=== PATIENT | female | born 1965 | race Caucasian/White ===

== ENCOUNTER 2020-06-02 13:06 | Emergency (ER) | payer MEDICARE, SELFPAY ==
[2020-06-02 13:47] VITALS: BP 92/65; PULSE 75; RESP 18; TEMP 36.5; O2SAT 97; BMI 24.5
--- NOTE | 2020-06-02 14:03 | ED_ITS ---
HPI - URI/Sore Throat General Chief Complaint: Upper Respiratory Symptoms Stated Complaint: FEVER,COUGH, DIARRHEA Time Seen by Provider: 06/02/20 14:02 Source: patient Mode of arrival: ambulatory Limitations: no limitations History of Present Illness MD elicited complaint: fever, cough and other (diarrhea) Pertinent past history: immunosuppression (has APS on plaquenil) Onset (ago): day(s) (1) Consistency: constant Severity: moderate Description of mucous: clear Able to tolerate fluids by mouth: Yes Exacerbating factors: nothing Relieving factors: nothing Associated symptoms: fever, chills, myalgias and diarrhea Related Data Previous Rx's Medication Instructions Recorded azithromycin See Rx Instructions .ROUTE 06/02/20 .COMPLEX #6 tab hydrocodone-homatropine 5 ml PO Q6H PRN #0.5 bottle 06/02/20 Allergies Allergy/AdvReac Type Severity Reaction Status Date / Time clindamycin [CLINDAMYCIN] Allergy Unknown RASH Verified 06/02/20 13:59 Sulfa (Sulfonamide Allergy Unknown RASH Verified 06/02/20 13:59 Antibiotics) [SULFA (SULFONAMIDE ANTIBIOTICS)] Clindamycin HCl Allergy Unknown rash Uncoded 05/01/20 00:00 Sulfonamide Allergy Unknown hives Uncoded 05/01/20 00:00 Review of Systems Review of Systems: Constitutional : positive Fever, positive Chills ENT/Mouth : No sore throat, No Rhinorrhea, No Swallowing Difficulty Eyes: No Eye Pain, No Swelling, No Redness Cardiovascular : No Chest Pain, no SOB, No Orthopnea, positive Edema Respiratory : positive Cough, No Sputum, No Wheezing, no dyspnea Gastrointestinal : No Nausea, No Vomiting, positive Diarrhea, No abdominal Pain Genitourinary : No Dysuria, No Urinary Frequency, No Hematuria Musculoskeletal : No joint pain, No Myalgias Skin : No Skin Lesions, No rash Neuro : No Weakness, No Numbness, No Dizziness, No Headache Psych : No Anxiety/Panic, No Depression Heme/Lymph: No Bruising, No Lymphadenopathy Endocrine : No Polyuria, No Polydipsia All other systems reviewed and are negative [facility] Past Medical History Attestation statement: The following information was validated with the patient. Medical History Adrenal mass APS (antiphospholipid syndrome) Deep vein thrombosis (DVT) Fibromyalgia Hyperlipemia Neuralgia Pulmonary embolism Surgical History H/O: hysterectomy Hx of cholecystectomy S/P ablation of atrial fibrillation Social History Social History (Updated 06/02/20 @ 14:24 by Jane Mercedes DO) Smoking Status: Former smoker Smoked in Last 30 Days: No Use of substances other than those prescribed or required for medical reasons: No Advance Directives: No Advance Directives Information Provided: No Physical Exam Vital Signs and I&O and Narrative: Vital Signs and I&O: Vital Signs Temp 97.7 F 06/02/20 13:47 Pulse 75 06/02/20 13:47 Resp 18 06/02/20 13:47 BP 125/62 06/02/20 14:16 Pulse Ox 97 06/02/20 13:47 Intake & Output 06/01/20 06/02/20 06/02/20 18:59 06:59 18:59 Weight 60.781 kg Body Mass Index 24.5 Appearance: Alert. Oriented X3. No acute distress. Eyes: Pupils equal, round and reactive to light. ENT: Pharynx normal. Neck: Normal inspection. Neck supple. CVS: Normal heart rate and rhythm. Pulses normal. Respiratory: No respiratory distress. + rhonchi anteriorly, decreased breath sounds bilterally mildly Abdomen: Soft and nontender. Skin: Skin warm and dry. Normal skin color. Normal skin turgor. Extremities: No lower extremity edema. No lower extremity edema. Neuro: Oriented X 3. No motor deficit. No sensory deficit. Course Reevaluation(s) Reevaluation #1: feels much btter, stable for DC, BP stable Reevaluation #2: feels better, O2 sat normal BP 121/65 MDM - URI/Sore Throat MDM Narrative Medical decision making narrative: patient with viral like syndrome fevers/chills/cough and diarrhea given her immunosuppression will need labs, cultures, lactic acid,IVF, CXR, COVID swab, INR given her coumadin use for DVT Lab Data Result diagrams: 06/02/20 14:52 06/02/20 14:52 Labs: Lab Results 06/02/20 06/02/20 06/02/20 Range/Units 14:51 14:52 14:52 WBC 4.5 L (4.8-10.8) X10*3/uL RBC 4.74 (4.20-5.50) X10*6/uL Hgb 14.5 (12.0-16.0) g/dl Hct 43.8 (37-47) % MCV 92.4 (80-98) fL MCH 30.6 (27.0-33.0) pg MCHC 33.1 (31.0-35.0) g/dl RDW 12.7 (11.0-16.0) % Plt Count 158 L (160-400) X10*3/uL MPV 10.5 (9.4-12.3) fL Immature Gran % (Auto) 0.2 (0.0-0.4) % Neut % (Auto) 58.9 (45-73) % Lymph % (Auto) 23.9 (20-40) % Gilliam % (Auto) 15.7 H (2-11) % Eos % (Auto) 1.1 (0-4) % Baso % (Auto) 0.2 (0-2) % Neut # (Auto) 2.6 (2.0-8.3) X10*3/uL Lymph # (Auto) 1.1 L (1.2-4.9) X10*3/uL Gilliam # (Auto) 0.7 (0.1-1.2) X10*3/uL Eos # (Auto) 0.1 (0.0-0.4) X10*3/uL Baso # (Auto) 0.0 (0.0-0.2) X10*3/uL Abs Immat Gran (auto) 0.01 (0.00-0.03) X10*3/uL Absolute Nucleated RBC 0.000 (0.0-0.012) X10*3/uL Nucleated RBC % (auto) 0.0 (0.0-0.2) /100WBC PT 28.2 H (10.8-13.0) SEC INR 2.4 H (0.9-1.1) Sodium (135-145) mmol/L Potassium (3.3-5.1) mmol/l Chloride (96-108) mmol/L Carbon Dioxide (22-29) mmol/L Anion Gap (12-20) BUN (9-16) mg/dL Creatinine (0.5-1.4) mg/dL Estim Creat Clear Calc Estimated GFR Random Glucose (60-115) mg/dL Lactic Acid 0.9 (0.5-2.0) mmol/L Calcium (8.4-10.2) mg/dL Magnesium (1.6-2.6) mg/dL 06/02/20 Range/Units 14:52 WBC (4.8-10.8) X10*3/uL RBC (4.20-5.50) X10*6/uL Hgb (12.0-16.0) g/dl Hct (37-47) % MCV (80-98) fL MCH (27.0-33.0) pg MCHC (31.0-35.0) g/dl RDW (11.0-16.0) % Plt Count (160-400) X10*3/uL MPV (9.4-12.3) fL Immature Gran % (Auto) (0.0-0.4) % Neut % (Auto) (45-73) % Lymph % (Auto) (20-40) % Gilliam % (Auto) (2-11) % Eos % (Auto) (0-4) % Baso % (Auto) (0-2) % Neut # (Auto) (2.0-8.3) X10*3/uL Lymph # (Auto) (1.2-4.9) X10*3/uL Gilliam # (Auto) (0.1-1.2) X10*3/uL Eos # (Auto) (0.0-0.4) X10*3/uL Baso # (Auto) (0.0-0.2) X10*3/uL Abs Immat Gran (auto) (0.00-0.03) X10*3/uL Absolute Nucleated RBC (0.0-0.012) X10*3/uL Nucleated RBC % (auto) (0.0-0.2) /100WBC PT (10.8-13.0) SEC INR (0.9-1.1) Sodium 139 (135-145) mmol/L Potassium 3.8 (3.3-5.1) mmol/l Chloride 107 (96-108) mmol/L Carbon Dioxide 24 (22-29) mmol/L Anion Gap 12 (12-20) BUN 9 (9-16) mg/dL Creatinine 0.68 (0.5-1.4) mg/dL Estim Creat Clear Calc 79.2 Estimated GFR > 60 Random Glucose 81 (60-115) mg/dL Lactic Acid (0.5-2.0) mmol/L Calcium 8.9 (8.4-10.2) mg/dL Magnesium 2.1 (1.6-2.6) mg/dL Discharge Plan Discharge Clinical Impression: Upper respiratory infection Patient Disposition: Home, Self-Care Instructions: COVID-19 (Coronavirus Disease 2019) (ED) Additional Instructions: you were tested for COVID we will call you with results in 2 to 4 days Prescriptions: New azithromycin 250 mg tablet See Rx Instructions .ROUTE .COMPLEX Qty: 6 RF: 0 hydrocodone-homatropine 5-1.5 mg/5 mL syrup 5 ml PO Q6H PRN (Reason: cough) Qty: 0.5 RF: 0 Referrals: Rachid Miles PA-C [Primary Care Provider] - 06/05/20
--- NOTE | 2020-06-02 14:13 | XR_ITS ---
EXAMINATION: XR CHEST 2 VIEWS CLINICAL INFORMATION: Cough. COMPARISON: Chest radiograph dated 03/12/2020. TECHNIQUE: Frontal and lateral views of the chest were obtained. The patient is somewhat rotated. FINDINGS: The heart, great vessels, pulmonary vasculature and mediastinum are normal. The lungs show no focal infiltrate, effusion or pneumothorax. There is no acute osseous abnormality. IMPRESSION: No active cardiopulmonary disease.
[2020-06-02 14:16] VITALS: BP 125/62
[2020-06-02] MEDS: Albuterol/Iprat 2.5/0.5MG 3 ML AMPUL.NEB INHALE (14:23)
[2020-06-02] MEDS: 0.9 % Sodium Chloride 1,000 ML 999 ML IVCONT (14:56)
[2020-06-02] MEDS: HYDROcodone/Homat 5/1.5/5 ML 5 ML SYRUP PO (14:56)
[2020-06-02 15:04] LABS: MANUAL DIFF FLAG NO
[2020-06-02 15:06] LABS: Basophils Percent Auto 0.2 % (0-2); Eosinophils Absolute Auto 0.1 X10*3/uL (0.0-0.4); Eosinophils Percent Auto 1.1 % (0-4); Hematocrit 43.8 % (37-47); Hemoglobin 14.5 g/dl (12.0-16.0); Imm Gran Abs Auto 0.01 X10*3/uL (0.00-0.03); Imm Gran Pct Auto 0.2 % (0.0-0.4); Lymphocytes Absolute Auto 1.1 X10*3/uL (1.2-4.9); Lymphocytes Percent Auto 23.9 % (20-40); Mean Corpuscular HGB Conc 33.1 g/dl (31.0-35.0); Mean Corpuscular Hemoglobin 30.6 pg (27.0-33.0); Mean Corpuscular Volume 92.4 fL (80-98); Mean Platelet Volume 10.5 fL (9.4-12.3); Monocytes Absolute Auto 0.7 X10*3/uL (0.1-1.2); Monocytes Percent Auto 15.7 % (2-11); Neutrophils Absolute Auto 2.6 X10*3/uL (2.0-8.3); Neutrophils Percent Auto 58.9 % (45-73); Platelet Count 158 X10*3/uL (160-400); Red Blood Count 4.74 X10*6/uL (4.20-5.50); Red Cell Distribution Width 12.7 % (11.0-16.0); White Blood Count 4.5 X10*3/uL (4.8-10.8)
[2020-06-02 15:10] LABS: INTERNATIONAL NORM RATIO 2.4 (0.9-1.1); Prothrombin Time 28.2 SEC (10.8-13.0)
[2020-06-02 15:30] LABS: Lactic Acid 0.9 mmol/L (0.5-2.0)
[2020-06-02 15:34] LABS: Anion Gap 12 (12-20); Blood Urea Nitrogen 9 mg/dL (9-16); Calcium 8.9 mg/dL (8.4-10.2); Carbon Dioxide 24 mmol/L (22-29); Chloride 107 mmol/L (96-108); Creatinine Clr Calc Pharmacy 79.2; Estimated Glomerular Filt Rate > 60; Glucose Random 81 mg/dL (60-115); Magnesium 2.1 mg/dL (1.6-2.6); Potassium 3.8 mmol/l (3.3-5.1); Sodium 139 mmol/L (135-145)
== END 2020-06-02 16:31 | disposition home or self-care (01) ==
PROVIDERS: Emergency Provider Emergency Medicine; PCP Physician Assistant
DX: J06.9 Acute upper respiratory infection, unspecified (principal); R50.9 Fever, unspecified; R05 Cough; Z20.828 Contact with and (suspected) exposure to other viral communicable diseases
CPT/HCPCS: 36415; 71045; 80048; 83605; 83735; 85025; 85610; 87040; 87635; 96360; 99284

== ENCOUNTER → 2020-07-04 11:24 | Outpatient (BNVA) | payer MEDICARE, SELFPAY | PROVIDERS: PCP Physician Assistant; Visit Provider Family Medicine Adult Medicine | DX: M79.7 Fibromyalgia (principal); R20.2 Paresthesia of skin; Z88.1 Allergy status to other antibiotic agents; Z88.2 Allergy status to sulfonamides; Z79.02 Long term (current) use of antithrombotics/antiplatelets; Z79.899 Other long term (current) drug therapy | CPT/HCPCS: 99202 ==

== ENCOUNTER 2020-10-31 14:27 | Outpatient (REF) | payer MEDICARE, SELFPAY ==
[2020-10-31 15:33] LABS: MANUAL DIFF FLAG NO
[2020-10-31 15:37] LABS: White Blood Count 6.8 X10*3/uL (4.8-10.8)
[2020-10-31 15:38] LABS: Basophils Percent Auto 0.3 % (0-2); Eosinophils Absolute Auto 0.1 X10*3/uL (0.0-0.4); Eosinophils Percent Auto 0.9 % (0-4); Hematocrit 45.4 % (37-47); Hemoglobin 15.1 g/dl (12.0-16.0); Imm Gran Abs Auto 0.02 X10*3/uL (0.00-0.03); Imm Gran Pct Auto 0.3 % (0.0-0.4); Lymphocytes Absolute Auto 2.5 X10*3/uL (1.2-4.9); Lymphocytes Percent Auto 36.5 % (20-40); Mean Corpuscular HGB Conc 33.3 g/dl (31.0-35.0); Mean Corpuscular Hemoglobin 30.6 pg (27.0-33.0); Mean Corpuscular Volume 91.9 fL (80-98); Mean Platelet Volume 10.9 fL (9.4-12.3); Monocytes Absolute Auto 0.8 X10*3/uL (0.1-1.2); Monocytes Percent Auto 11.6 % (2-11); Neutrophils Absolute Auto 3.4 X10*3/uL (2.0-8.3); Neutrophils Percent Auto 50.4 % (45-73); Platelet Count 216 X10*3/uL (160-400); Red Blood Count 4.94 X10*6/uL (4.20-5.50); Red Cell Distribution Width 12.4 % (11.0-16.0)
[2020-10-31 15:48] LABS: Glucose Urine UA NEG (NEG); Leukocyte Esterase Urine NEG (NEG); Nitrite Urine NEG (NEG); Specific Gravity - Urine >= 1.030 (1.005-1.025); Urine Blood TRACE (NEG); Urine Ketones NEG (NEG); Urine Protein NEG (NEG-TRACE)
[2020-10-31 15:49] LABS: Appearance Urine CLEAR; Color Urine YELLOW
[2020-10-31 15:51] LABS: Bacteria Urine 1+ /LPF; Mucus Urine 1+ /LPF; Squamous Epithelial Cell Urine 1+ /LPF
[2020-10-31 16:03] LABS: Alanine Aminotransferase 54 U/L (0-31); Albumin Level 4.4 g/dL (3.5-5.0); Alkaline Phosphatase 112 U/L (39-117); Anion Gap 13 (12-20); Aspartate Amino Transferase 52 U/L (5-31); Bilirubin Total 0.6 mg/dL (0.0-1.0); Blood Urea Nitrogen 7 mg/dL (9-16); Calcium 8.7 mg/dL (8.4-10.2); Carbon Dioxide 28 mmol/L (22-29); Chloride 105 mmol/L (96-108); Cholesterol 155 mg/dL; Estimated Glomerular Filt Rate > 60; Glucose Random 83 mg/dL (60-115); HDL Cholesterol 40 mg/dL; LDL Cholesterol Calculated 66 mg/dl; Potassium 4.5 mmol/L (3.3-5.1); Sodium 141 mmol/L (135-145); Total Protein 6.9 g/dL (6.5-8.0); Triglycerides 247 mg/dL
== END 2020-10-31 14:28 | disposition home or self-care (01) ==
LOC: HO.LAB 14:27
PROVIDERS: PCP Physician Assistant; Visit Provider Nurse Practitioner Family
DX: N39.0 Urinary tract infection, site not specified (principal); K59.00 Constipation, unspecified
CPT/HCPCS: 36415; 80053; 80061; 81001; 85025

== ENCOUNTER 2021-01-16 16:27 | Outpatient (REF) | payer MEDICARE, SELFPAY ==
--- NOTE | ~2021-01-16 | XR_ITS ---
EXAMINATION: XR CHEST CLINICAL INFORMATION: Shortness of breath COMPARISON: None TECHNIQUE: 2 views of the chest were obtained. FINDINGS: No significant abnormality is noted involving the heart, lungs, mediastinum, bony thorax or soft tissues. XR/XR chest 2V IMPRESSION: Unremarkable chest exam.
[2021-01-17 12:36] LABS: Influenza A PCR NEGATIVE (Negative); Influenza B PCR NEGATIVE (Negative); Resp Syncy Virus RNA Qual PCR NEGATIVE (Negative); SARS COV2 PCR INHOUSE NEGATIVE (Negative)
== END 2021-01-16 16:28 | disposition home or self-care (01) ==
LOC: HO.LAB 16:27
PROVIDERS: Visit Provider Nurse Practitioner Family
DX: Z20.822 Contact with and (suspected) exposure to COVID-19 (principal); R06.02 Shortness of breath
CPT/HCPCS: 0241U; 36415; 71046

== ENCOUNTER 2021-01-16 16:30 | Outpatient (REF) | payer MEDICARE, SELFPAY | END 2021-01-16 16:31 | disposition home or self-care (01) | LOC: HO.HMGCX 16:30 | PROVIDERS: PCP Physician Assistant; Visit Provider Nurse Practitioner Family | DX: Z13.89 Encounter for screening for other disorder (principal) ==

== ENCOUNTER 2021-04-13 15:32 | Outpatient (REF) | payer OTHER, SELFPAY ==
[2021-04-13 16:43] LABS: Urine Cytology See Pathology rpt
== END 2021-04-13 15:33 | disposition home or self-care (01) ==
LOC: HO.LNP 15:32
PROVIDERS: PCP Physician Assistant
DX: R10.2 Pelvic and perineal pain (principal); R30.0 Dysuria; R39.12 Poor urinary stream; N39.0 Urinary tract infection, site not specified; E78.00 Pure hypercholesterolemia, unspecified; F17.210 Nicotine dependence, cigarettes, uncomplicated; Z88.1 Allergy status to other antibiotic agents; Z88.2 Allergy status to sulfonamides
CPT/HCPCS: 51798; 88112; 99202

== ENCOUNTER → 2021-05-04 11:33 | Outpatient (BNVA) | payer OTHER, SELFPAY | PROVIDERS: PCP Physician Assistant | CPT/HCPCS: Q3014 ==

== ENCOUNTER 2021-05-11 16:44 | Emergency (ER) | payer OTHER, SELFPAY ==
[2021-05-11 16:48] VITALS: BP 143/70; PULSE 124; RESP 16; TEMP 36.5; O2SAT 100; BMI 26.3
--- NOTE | 2021-05-11 16:57 | PC.NURSE ---
Patient reports I am not waiting, bring me outside I am going to another hospital . This RN pulled her outside on wheelchair. Patient jumped out of chair and started running through hospital parking lot, swearing at this RN.
== END 2021-05-11 17:18 | disposition left against medical advice (07) ==
LOC: HO.ED 17:17
PROVIDERS: Emergency Provider Emergency Medicine
DX: R06.02 Shortness of breath (principal); F41.1 Generalized anxiety disorder; F43.0 Acute stress reaction
CPT/HCPCS: 99281; 99282

== ENCOUNTER 2021-05-18 14:03 | Outpatient (REF) | payer OTHER, SELFPAY ==
[2021-05-18 14:49] LABS: Blood Urea Nitrogen 5 mg/dL (9-16); Estimated Glomerular Filt Rate > 60
== END 2021-05-18 14:04 | disposition home or self-care (01) ==
LOC: HO.LAB 14:03
PROVIDERS: PCP Physician Assistant; Visit Provider Physician Assistant
DX: D68.61 Antiphospholipid syndrome (principal)
CPT/HCPCS: 36415; 82565; 84520

== ENCOUNTER 2021-06-21 | Outpatient (REF) | payer OTHER, SELFPAY ==
[2021-06-22 12:59] LABS: Influenza A PCR NEGATIVE (Negative); Influenza B PCR NEGATIVE (Negative); Resp Syncy Virus RNA Qual PCR NEGATIVE (Negative); SARS COV2 PCR INHOUSE NEGATIVE (Negative)
== END 2021-06-21 00:01 | disposition home or self-care (01) ==
LOC: HO.LNP
PROVIDERS: Visit Provider Physician Assistant Medical
DX: Z20.822 Contact with and (suspected) exposure to COVID-19 (principal); J06.9 Acute upper respiratory infection, unspecified
CPT/HCPCS: 0241U

== ENCOUNTER 2021-06-27 13:05 | Outpatient (REF) | payer OTHER, SELFPAY ==
--- NOTE | ~2021-06-27 | US_ITS ---
EXAMINATION: US ABDOMEN LIMITED CLINICAL INFORMATION: Localized swelling, mass and lump, trunk. COMPARISON: Previous CT of the abdomen and pelvis August 2019 TECHNIQUE: Real-time imaging of the region of concern to the right of the umbilicus using a linear transducer as indicated by the patient. FINDINGS: No hernia is appreciated by ultrasound. No solid or cystic soft tissue mass is seen. US/US abdomen limited IMPRESSION: No hernia appreciated by ultrasound
== END 2021-06-27 13:06 | disposition home or self-care (01) ==
LOC: HO.HMGCX 13:05
PROVIDERS: PCP Physician Assistant; Visit Provider Physician Assistant
DX: R22.2 Localized swelling, mass and lump, trunk (principal)
CPT/HCPCS: 76705

== ENCOUNTER 2021-09-06 14:55 | Outpatient (RCR) | payer OTHER, SELFPAY | END 2021-10-30 09:27 | disposition home or self-care (01) | LOC: HO.PT 14:55 | PROVIDERS: PCP Physician Assistant; Visit Provider Nurse Practitioner Family | DX: S39.011D Strain of muscle, fascia and tendon of abdomen, subsequent encounter (principal) | CPT/HCPCS: 97110; 97162; 97530 ==

== ENCOUNTER 2021-09-17 13:37 | Outpatient (REF) | payer OTHER, SELFPAY ==
[2021-09-17 14:22] LABS: Hematocrit 44.9 % (37.0-47.0); Hemoglobin 14.6 g/dl (12.0-16.0); Mean Corpuscular HGB Conc 32.5 g/dl (31.0-35.0); Mean Corpuscular Hemoglobin 30.1 pg (27.0-33.0); Mean Corpuscular Volume 92.6 fL (80.0-98.0); Mean Platelet Volume 10.1 fL (9.4-12.3); Platelet Count 256 X10*3/uL (160-400); Red Blood Count 4.85 X10*6/uL (4.20-5.50); Red Cell Distribution Width 13.6 % (11.0-16.0); White Blood Count 9.6 X10*3/uL (4.8-10.8)
[2021-09-17 14:30] LABS: Estimated Average Glucose 123 mg/dL; Hemoglobin A1c % 5.9 %
[2021-09-17 15:01] LABS: Alanine Aminotransferase 93 U/L (0-31); Albumin Level 4.1 g/dL (3.5-5.0); Alkaline Phosphatase 234 U/L (39-117); Anion Gap 13 (12-20); Aspartate Amino Transferase 76 U/L (5-31); Bilirubin Total 0.5 mg/dL (0.0-1.0); Blood Urea Nitrogen 5 mg/dL (9-16); Carbon Dioxide 29 mmol/L (22-29); Chloride 102 mmol/L (96-108); Cholesterol 169 mg/dL; Estimated Glomerular Filt Rate > 60; Glucose Fasting 84 mg/dL (60-99); HDL Cholesterol 49 mg/dL; LDL Cholesterol Calculated 70 mg/dl; Potassium 4.4 mmol/L (3.3-5.1); Sodium 140 mmol/L (135-145); Triglycerides 252 mg/dL
[2021-09-17 15:23] LABS: TSH reflex Free T4 0.98 uIU/mL (0.32-4.0)
== END 2021-09-17 13:38 | disposition home or self-care (01) ==
LOC: HO.LAB 13:37
PROVIDERS: PCP Physician Assistant; Visit Provider Physician Assistant
DX: D68.61 Antiphospholipid syndrome (principal); I10 Essential (primary) hypertension
CPT/HCPCS: 36415; 80053; 80061; 83036; 84443; 85027

== ENCOUNTER 2021-10-16 15:59 | Outpatient (REF) | payer OTHER, SELFPAY ==
--- NOTE | ~2021-10-16 | MM_ITS ---
EXAMINATION: MM SCREENING DIGITAL BREAST TOMOSYNTHESIS, BILATERAL CLINICAL INFORMATION: Screening. Asymptomatic. The lifetime risk of breast cancer based on the Tyrer-Cuzick Model is 5%. COMPARISON: Mammography: 04/06/2020, 03/25/2019, 01/22/2011 TECHNIQUE: Digital breast tomosynthesis is performed in both the craniocaudal and mediolateral oblique views along with computer-aided detection (CAD). Synthesized 2D images are generated from the tomosynthesis. FINDINGS: There are scattered areas of fibroglandular density (ACR BI-RADS breast composition Category b). There are no significant masses, abnormal calcifications, or other abnormalities. Biopsy clip marker again noted posterior 3:00 left breast. There are scattered bilateral benign round and coarse calcifications again seen. The axilla and skin contours are unremarkable. No significant changes. MM/MM tomosynthesis screening BI IMPRESSION: No mammographic evidence of malignancy. ASSESSMENT: BI-RADS 2: Benign RECOMMENDATION: Routine annual mammography screening. This patient's information was entered into a reminder system with a target due date for their next mammogram.
== END 2021-10-16 16:00 | disposition home or self-care (01) ==
LOC: HO.MAMMO 15:59
PROVIDERS: PCP Physician Assistant; Visit Provider Physician Assistant
DX: Z12.31 Encounter for screening mammogram for malignant neoplasm of breast (principal)
CPT/HCPCS: 77063; 77067

== ENCOUNTER 2021-10-30 13:05 | Outpatient (REF) | payer OTHER, SELFPAY ==
--- NOTE | ~2021-10-30 | US_ITS ---
EXAMINATION: US ABDOMEN COMPLETE CLINICAL INFORMATION: Elevated liver enzymes. Abdominal bloating. COMPARISON: US abdomen limited 06/27/2021. CT abdomen and pelvis 08/27/2019. TECHNIQUE: Real-time imaging of the abdominal viscera. FINDINGS: PANCREAS: Normal. ABDOMINAL AORTA: The proximal, mid, and distal segments are normal in caliber. INFERIOR VENA CAVA: Visualized portions are normal. LIVER: The liver is normal in size. The liver contour is normal. There is increased liver echogenicity. No focal hepatic lesion. There is no intrahepatic biliary duct dilatation seen. GALLBLADDER: Surgically absent. COMMON BILE DUCT: Normal in caliber measuring 1.2 cm in diameter. RIGHT KIDNEY: Normal. No hydronephrosis. No renal calculi or focal parenchymal lesions. The kidney measures 11.1 cm in maximum dimension. LEFT KIDNEY: Normal. No hydronephrosis. No renal calculi or focal parenchymal lesions. The kidney measures 11.3 cm in maximum dimension. SPLEEN: Normal. The spleen measures 10.4 cm in maximum dimension. FREE FLUID: None. US/US abdomen complete IMPRESSION: Mild hepatic steatosis without focal lesion.
== END 2021-10-30 13:06 | disposition home or self-care (01) ==
LOC: HO.US 13:05
PROVIDERS: PCP Physician Assistant; Visit Provider Physician Assistant
DX: R74.01 Elevation of levels of liver transaminase levels (principal)
CPT/HCPCS: 76700

== ENCOUNTER 2021-11-13 13:11 | Outpatient (REF) | payer OTHER, SELFPAY ==
--- NOTE | ~2021-11-13 | XR_ITS ---
EXAMINATION: XR SHOULDER, LEFT CLINICAL INFORMATION: Pain COMPARISON: None TECHNIQUE: AP external rotation, Grashey, scapular Y, and axillary views of the left shoulder. FINDINGS: Bone alignment is normal. No fracture or dislocation is seen. The glenohumeral joint is normal. There is mild arthritis at the acromioclavicular joint. Soft tissues are unremarkable. XR/XR shoulder LT min 2V IMPRESSION: Mild arthritis at the acromioclavicular joint.
[2021-11-13 13:42] LABS: Hematocrit 46.3 % (37.0-47.0); Hemoglobin 15.2 g/dl (12.0-16.0); Mean Corpuscular HGB Conc 32.8 g/dl (31.0-35.0); Mean Corpuscular Hemoglobin 29.9 pg (27.0-33.0); Mean Corpuscular Volume 91.1 fL (80.0-98.0); Mean Platelet Volume 10.3 fL (9.4-12.3); Platelet Count 224 X10*3/uL (160-400); Red Blood Count 5.08 X10*6/uL (4.20-5.50); Red Cell Distribution Width 13.4 % (11.0-16.0); White Blood Count 10.1 X10*3/uL (4.8-10.8)
[2021-11-13 13:56] LABS: Prothrombin Time 35.3 SEC (9.9-13.0)
[2021-11-13 14:15] LABS: Alanine Aminotransferase 121 U/L (0-31); Albumin Level 4.4 g/dL (3.5-5.0); Alkaline Phosphatase 132 U/L (39-117); Aspartate Amino Transferase 73 U/L (5-31); Bilirubin Direct 0.2 mg/dL (0.0-0.5); Bilirubin Total 0.3 mg/dL (0.0-1.0); C Reactive Protein 1.29 mg/dL (< or = 0.50); Cholesterol 186 mg/dL; HDL Cholesterol 51 mg/dL; LDL Cholesterol Calculated 88 mg/dl; Total Protein 7.1 g/dL (6.5-8.0); Triglycerides 239 mg/dL
[2021-11-13 14:27] LABS: Erythrocyte Sedimentation Rate 7 MM/HR (0-20)
[2021-11-13 14:29] LABS: TSH reflex Free T4 0.83 uIU/mL (0.32-4.0)
[2021-11-18 18:42] LABS: Cortisol, Free 0.12 mcg/dL
== END 2021-11-13 13:12 | disposition home or self-care (01) ==
LOC: HO.LAB 13:11
PROVIDERS: PCP Physician Assistant; Visit Provider Physician Assistant
DX: E78.00 Pure hypercholesterolemia, unspecified (principal); E27.8 Other specified disorders of adrenal gland; D68.61 Antiphospholipid syndrome; M25.512 Pain in left shoulder
CPT/HCPCS: 36415; 73030; 80061; 80076; 82530; 84443; 85027; 85610; 85652; 86140

== ENCOUNTER → 2021-11-29 13:47 | Outpatient (BNVA) | payer OTHER, SELFPAY | PROVIDERS: PCP Physician Assistant; Visit Provider Nurse Practitioner Family | DX: M79.2 Neuralgia and neuritis, unspecified (principal); M79.7 Fibromyalgia; D68.61 Antiphospholipid syndrome; M47.817 Spondylosis without myelopathy or radiculopathy, lumbosacral region; M25.512 Pain in left shoulder; M46.1 Sacroiliitis, not elsewhere classified | CPT/HCPCS: 99212 ==

== ENCOUNTER → 2021-12-12 12:58 | Outpatient (BNVA) | payer OTHER, SELFPAY | PROVIDERS: PCP Physician Assistant; Visit Provider Internal Medicine Endocrinology, Diabetes & Metabolism | DX: E89.6 Postprocedural adrenocortical (-medullary) hypofunction (principal) | CPT/HCPCS: 99202 ==

== ENCOUNTER 2021-12-26 12:50 | Outpatient (REF) | payer OTHER, SELFPAY ==
--- NOTE | ~2021-12-26 | XR_ITS ---
EXAMINATION: XR CHEST CLINICAL INFORMATION: Preop COMPARISON: 01/16/2021 TECHNIQUE: 2 views of the chest were obtained. FINDINGS: No significant abnormality is noted involving the heart, lungs, mediastinum, bony thorax or soft tissues. XR/XR chest 2V IMPRESSION: Unremarkable examination.
--- NOTE | 2021-12-26 13:38 | ECG_ITS ---
Test Reason : Z01.818 PREOP Blood Pressure : / mmHG Vent. Rate : 099 BPM Atrial Rate : 099 BPM P-R Int : 168 ms QRS Dur : 088 ms QT Int : 346 ms P-R-T Axes : 059 084 046 degrees QTc Int : 444 ms Normal sinus rhythm Normal ECG When compared with ECG of 12-MAR-2020 15:48, Vent. rate has increased BY 45 BPM QT has lengthened Referred By: Rcahid Miles Electronically Signed By:SAMIR NINA
[2021-12-26 13:56] LABS: INTERNATIONAL NORM RATIO 2.8 (0.9-1.1); Prothrombin Time 32.9 SEC (9.9-13.0)
[2021-12-26 13:58] LABS: Partial Thromboplastin Time 49.2 SEC (24.1-38.0)
[2021-12-26 14:26] LABS: HCG Quantitative < 2 mIU/mL
[2021-12-27 06:04] LABS: HIV AB/AG Nonreactive (Nonreactive)
== END 2021-12-26 12:51 | disposition home or self-care (01) ==
LOC: HO.XRAY 12:50
PROVIDERS: PCP Physician Assistant; Visit Provider Physician Assistant
DX: Z01.818 Encounter for other preprocedural examination (principal); Z11.4 Encounter for screening for human immunodeficiency virus [HIV]; Z11.3 Encounter for screening for infections with a predominantly sexual mode of transmission
CPT/HCPCS: 36415; 71046; 84702; 85610; 85730; 87389; 93005

== ENCOUNTER → 2021-12-27 14:32 | Outpatient (BNVA) | payer OTHER, SELFPAY | PROVIDERS: PCP Physician Assistant; Visit Provider Nurse Practitioner Family | DX: M47.817 Spondylosis without myelopathy or radiculopathy, lumbosacral region (principal); M79.2 Neuralgia and neuritis, unspecified; M79.7 Fibromyalgia | CPT/HCPCS: 99212 ==

== ENCOUNTER 2022-04-09 14:09 | Outpatient (REF) | payer OTHER, SELFPAY ==
--- NOTE | ~2022-04-09 | XR_ITS ---
EXAMINATION: XR SHOULDER, RIGHT CLINICAL INFORMATION: Right shoulder pain COMPARISON: Chest radiographs 12/26/2021 TECHNIQUE: Right shoulder is imaged in 4 views. FINDINGS: There is airspace consolidation right upper lobe greatest adjacent to the minor fissure with mild volume loss. No visible effusion. No mediastinal shift. Finding is new from chest radiographs 12/26/2021. There is no bony abnormality. No shoulder fracture, dislocation, or arthropathy. The acromioclavicular alignment is normal. Normal bony mineralization. No visible rotator cuff calcifications. PSA to call report. XR/XR shoulder RT min 2V IMPRESSION: -Right upper lobe airspace consolidation abutting minor fissure with some mild volume loss. Recommend further evaluation with formal two-view chest x-ray and correlation with clinical findings and impression. -Right shoulder unremarkable. No bony abnormality. No visible rotator cuff calcifications.
[2022-04-09 14:54] LABS: Hematocrit 38.7 % (37.0-47.0); Hemoglobin 13.1 g/dl (12.0-16.0); Mean Corpuscular HGB Conc 33.9 g/dl (31.0-35.0); Mean Corpuscular Volume 91.7 fL (80.0-98.0); Mean Platelet Volume 9.9 fL (9.4-12.3); Platelet Count 259 X10*3/uL (160-400); Red Blood Count 4.22 X10*6/uL (4.20-5.50); Red Cell Distribution Width 13.2 % (11.0-16.0); White Blood Count 6.4 X10*3/uL (4.8-10.8)
[2022-04-09 15:03] LABS: INTERNATIONAL NORM RATIO 3.7 (0.9-1.1); Prothrombin Time 44.8 SEC (10.0-13.1)
[2022-04-09 15:24] LABS: Anion Gap 17 (12-20); Blood Urea Nitrogen 4 mg/dL (9-16); Calcium 8.9 mg/dL (8.4-10.2); Carbon Dioxide 21 mmol/L (22-29); Chloride 106 mmol/L (96-108); Estimated Glomerular Filt Rate > 60; Glucose Random 123 mg/dL (60-115); Potassium 3.9 mmol/L (3.3-5.1); Sodium 140 mmol/L (135-145)
== END 2022-04-09 14:10 | disposition home or self-care (01) ==
LOC: HO.XRAY 14:09
PROVIDERS: PCP Physician Assistant; Visit Provider Physician Assistant
DX: Z01.818 Encounter for other preprocedural examination (principal); M25.511 Pain in right shoulder; Z87.01 Personal history of pneumonia (recurrent)
CPT/HCPCS: 36415; 73030; 80048; 84443; 84481; 85027; 85610

== ENCOUNTER 2023-01-17 13:09 | Outpatient (REF) | payer OTHER, SELFPAY ==
--- NOTE | ~2023-01-17 | XR_ITS ---
EXAMINATION: XR chest 2V CLINICAL INFORMATION: Reason for Exam C34.90 - Malignant neoplasm of unspecified part of unspecified bronchus ... COMPARISON: Prior chest x-ray November 2021 TECHNIQUE: XR chest 2V Lungs and Barbara: Opacity developed over the right upper lobe probably a lung mass and/or atelectasis. Pleura: There is tenting of the right hemidiaphragm possibly atelectasis and/or scarring. Blunting of posterior costophrenic angle suggesting small effusion. Heart: The heart is normal in size. Mediastinum: The mediastinum is within normal limits.. Bones: Skeletal structures included are normal for patient's age. XR/XR chest 2V IMPRESSION: * Opacity developed over the right upper lobe probably a lung mass and/or atelectasis. * Blunting of posterior costophrenic angle suggesting small effusion. * Tenting of the right hemidiaphragm possibly atelectasis and/or scarring. * Would recommend correlation with follow-up contrast enhanced diagnostic chest CT scan. (Referring physician staff is being called, by physician staff assistance, to be alerted of the above critical findings and recommendations.) 02/04/2023 4:13 PM
[2023-01-17 14:03] LABS: Hematocrit 40.6 % (37.0-47.0); Hemoglobin 13.4 g/dl (12.0-16.0); Mean Corpuscular Hemoglobin 29.4 pg (27.0-33.0); Mean Platelet Volume 10.1 fL (9.4-12.3); Platelet Count 190 X10*3/uL (160-400); Red Blood Count 4.56 X10*6/uL (4.20-5.50); Red Cell Distribution Width 14.5 % (11.0-16.0); White Blood Count 7.9 X10*3/uL (4.8-10.8)
[2023-01-17 14:13] LABS: INTERNATIONAL NORM RATIO 2.3 (0.9-1.1); Prothrombin Time 27.3 SEC (10.0-13.1)
[2023-01-17 14:28] LABS: Anion Gap 12 (12-20); Blood Urea Nitrogen 5 mg/dL (9-16); Carbon Dioxide 27 mmol/L (22-29); Chloride 105 mmol/L (96-108); Estimated Glomerular Filt Rate > 60; Glucose Random 98 mg/dL (60-115); Potassium 4.2 mmol/L (3.3-5.1); Sodium 140 mmol/L (135-145)
== END 2023-01-17 13:10 | disposition home or self-care (01) ==
LOC: HO.XRAY 13:09
PROVIDERS: PCP Physician Assistant; Visit Provider Physician Assistant
DX: Z01.818 Encounter for other preprocedural examination (principal); D68.61 Antiphospholipid syndrome; C34.90 Malignant neoplasm of unspecified part of unspecified bronchus or lung; C79.31 Secondary malignant neoplasm of brain; R05.9 Cough, unspecified
CPT/HCPCS: 36415; 71046; 80048; 85027; 85610

== ENCOUNTER 2023-02-11 13:30 | Outpatient (REF) | payer OTHER, SELFPAY ==
--- NOTE | ~2023-02-11 | XR_ITS ---
EXAMINATION: XR CHEST CLINICAL INFORMATION: Acute cough COMPARISON: Chest 01/17/2023 TECHNIQUE: 2 views of the chest were obtained. FINDINGS: There is elevated right hemidiaphragm. Patchy opacity seen in the right upper lobe and right parahilar middle lobe, similar to previous chest x-ray 01/17/2023. The left lung is expanded and clear. Heart size and pulmonary vascularity is normal.. XR/XR chest 2V IMPRESSION: Loss of right lung volume with elevated right hemidiaphragm. Persistent patchy opacity right upper lobe and right parahilar middle lobe. No change from 01/17/2023
== END 2023-02-11 13:31 | disposition home or self-care (01) ==
LOC: HO.XRAY 13:30
PROVIDERS: PCP Physician Assistant; Visit Provider Physician Assistant
DX: J81.1 Chronic pulmonary edema (principal); R05.1 Acute cough
CPT/HCPCS: 71046

== ENCOUNTER 2023-04-08 14:49 | Outpatient (REF) | payer OTHER, SELFPAY ==
[2023-04-08 16:06] LABS: Prothrombin Time 77.3 SEC (11.1-13.3)
[2023-04-08 16:16] LABS: INTERNATIONAL NORM RATIO 6.3 (0.9-1.1)
== END 2023-04-08 14:50 | disposition home or self-care (01) ==
LOC: HO.LAB 14:49
PROVIDERS: PCP Physician Assistant; Visit Provider Physician Assistant
DX: D68.61 Antiphospholipid syndrome (principal); I26.99 Other pulmonary embolism without acute cor pulmonale
CPT/HCPCS: 36415; 85610

== ENCOUNTER 2023-04-09 13:31 | Outpatient (REF) | payer OTHER, SELFPAY ==
[2023-04-09 15:46] LABS: Prothrombin Time 101.2 SEC (11.1-13.3)
[2023-04-09 17:26] LABS: INTERNATIONAL NORM RATIO 8.3 (0.9-1.1)
== END 2023-04-09 13:32 | disposition home or self-care (01) ==
LOC: HO.LAB 13:31
PROVIDERS: PCP Physician Assistant; Visit Provider Physician Assistant
DX: I26.99 Other pulmonary embolism without acute cor pulmonale (principal); D68.61 Antiphospholipid syndrome
CPT/HCPCS: 36415; 85610

== ENCOUNTER 2023-04-10 14:01 | Outpatient (REF) | payer OTHER, SELFPAY ==
[2023-04-10 15:26] LABS: Prothrombin Time 76.7 SEC (11.1-13.3)
[2023-04-10 15:43] LABS: INTERNATIONAL NORM RATIO 6.3 (0.9-1.1)
== END 2023-04-10 14:02 | disposition home or self-care (01) ==
LOC: HO.LAB 14:01
PROVIDERS: Visit Provider Physician Assistant
DX: I26.99 Other pulmonary embolism without acute cor pulmonale (principal); D68.61 Antiphospholipid syndrome
CPT/HCPCS: 36415; 85610